=== PATIENT | female | born 1940 | race Caucasian/White ===

== ENCOUNTER → 2017-05-13 | Outpatient (CLI) | payer OTHER ==
[~2017-05-13] MED LIST: ALPR-411 PO; ASPI-461 PO; ATOR10TA88 PO; BISM262C6 PO; CLR10 PO; LOSA1TAB PO; METO50TA7 PO; PRED20TA2 PO; SULF1TAB92 PO; SYMIN/8045 INH; VNTHFA/IN INH
[2017-05-13 10:07] LABS: BLOOD UREA NITROGEN 12 mg/dl (7-18); GLUCOSE 91 mg/dl (70-99)
[2017-05-13 10:08] LABS: BUN/CREATININE RATIO 16.5 (10-20); CALCIUM 9.3 mg/dl (8.5-10.1); CARBON DIOXIDE 29 mmol/L (21-32); CHLORIDE 99 mmol/L (98-107); SODIUM 133 mmol/L (136-145)
[2017-05-13 10:18] LABS: PHOSPHORUS 3.6 mg/dl (2.5-4.9)
[2017-05-13 12:59] LABS: LYME DISEASE AB IGG NEG (NEG)
[2017-05-13 13:02] LABS: LYME DISEASE AB IGM NEG (NEG)
== END | disposition home or self-care (01) ==
LOC: C.LAB1850 07:13
PROVIDERS: ATTEND Internal Medicine Nephrology
DX: R53.83 Other fatigue (principal)

== ENCOUNTER 2017-06-23 17:29 | Emergency (ER) | payer OTHER ==
[~2017-06-23] VITALS: Ht 162.6 cm; Wt 64.6 kg
[~2017-06-23 17:29] MED LIST changes: -PRED20TA2 PO
[2017-06-23 17:31] VITALS: TEMP 36.7; Ht 162.6 cm; Wt 64.6 kg
[2017-06-23] MEDS ORDERED: PRED20TA2 PO (18:32)
[2017-06-23 18:42] VITALS: BP 189/100; PULSE 67; O2SAT 96
--- NOTE | 2017-06-23 23:45 | EMERGENCY ROOM VISIT NOTE ---
ED Visit Note First contact with patient: 17:36 Chief Complaint: I was stung 5 times by insects. History of Present Illness: Ms. Mariano is a 76-year-old white female who ambulates into the ED expressing concerns about a possible reaction. Patient reports 5 years ago she was seen in this ED after she was stung by 5 yellow jackets and developed numbness in swelling in the mouth and throat. She was treated and released with an EpiPen. She reports she has had no problems since then. Patient reports approximately 20 minutes ago she was stung 5 times by an insect that she has never seen before; she did not feel this was a yellow jacket or bee. She reports she is not having any sensations like she had previous reactions with swelling of her lips, mouth or tongue. Currently she is complaining of a stinging pain in the area of her insect bites which includes the right lateral neck, the right flank, left chest and left anterior neck. She rates her discomfort 7/10. Her pain is nonradiating. Her pain worsens with palpation. She has not identified any alleviating factors related to the pain. She has not taken a medications for pain prior to arrival at the hospital. She denies any associated symptoms including dizziness, lightheadedness, sensations of throat swelling, voice changes, difficulty swallowing, cough, wheezing, shortness of breath, abdominal pain, nausea/ vomiting. Review of Systems: As noted above in history of present illness. 8 body systems were reviewed and found to be negative as noted above. Past Medical History: (1) Hyperlipidemia (2) Hypertension Current Medications: Medications Dose Route/Sig Max Daily Dose Days Date Category Dose Instructions Xanax (Alprazolam) 0.5 Mg Tab 0.25 Mg PO PRN 08/27/16 Reported Claritin (Loratadine) 10 Mg Tab 10 Mg PO DAILY PRN 08/27/16 Reported Ventolin Hfa (Albuterol) 200 Puffs/29959 Mcg Aers 2 Puffs INH QID 08/27/16 Reported Symbicort 80/4.5 Inhaler (Budesonide/Formoterol Fumarate) Aero 2 Puffs INH BID 07/17/16 Reported Aspirin 81 Mg Tab 81 Mg PO 3XWK 03/16/16 Reported Lipitor (Atorvastatin Calcium) 10 Mg Tab 10 Mg PO MWF 03/16/16 Reported Cozaar (Losartan Potassium) 25 Mg Tab 25 Mg PO MWF 03/16/16 Reported HOLD AM SURGERY Fridays-AM Toprol-Xl (Metoprolol Succinate) 50 Mg Tabcr 50 Mg PO DAILY AT NOON 03/16/16 Reported Allergies to Medications: Aspirin, doxycycline, warfarin. Social History: Patient not employed; she feels safe in her home environment; he denies tobacco use. Physical Examination: Vital Signs: Date Time Temp Pulse Resp B/P (MAP) Pulse Ox O2 Delivery O2 Flow Rate FiO2 06/23/17 18:42 67 18 189/100 96 06/23/17 17:31 36.7 70 18 188/106 97 GENERAL: 76-year-old female in mild distress due to pain, nontoxic-appearing, afebrile and hemodynamically stable. NEUROLOGICAL: Awake, alert and oriented to person, place and time. Answering questions appropriately and following commands. Normal gait. Good hand eye coordination. No focal motor sensory deficits. SKIN: Warm, dry and pink. Over the 4 areas noted above patient has a small subcentimeter welt surrounded by mild erythema consistent with an insect bite. There are no local hives or erythema. HEENT: Atraumatic and normocephalic. PERRLA. Sclera white and conjunctiva pink. No drainage from naris. Oral cavity moist and pink. Airway is patent. No swelling of the tongue. Pharynx is nonerythematous or edematous. Speech normal. No auditory or auscultatory stridor. THORAX: Lungs sounds are clear to auscultation and equal bilaterally with symmetrical chest wall. No wheezing, rales or rhonchi. No increased respiratory effort or rate. ED Course: Patient is assessed as noted above. Patient's medication list was reviewed. Patient was placed on the monitor and observed; after one hour patient requested to go home and reported she was feeling much better. Patient's case was reviewed with ; we agreed on diagnostic approach , treatment, disposition and plan. Patient was educated about today's findings and instructed on her treatment plan ; she verbalized understanding and agreement with this plan. Clinical Impression: Insect bite. Disposition: Patient discharged home in stable condition accompanied by female friends; prior to departure she was reassessed and subjectively reported she was feeling better. She denies all sensations of throat swelling, shortness of breath. Plan: Patient was encouraged to continue her current medications. Patient was prescribed 40 mg of prednisone once a day for 4 days. Patient was encouraged use 25-50 mg of Benadryl every 6 hours as needed for hives or itchy skin. Patient was encouraged to follow-up with family physician. Patient was encouraged return ED for any sensations of throat swelling, mouth numbness, difficulty swallowing, wheezing, shortness of breath or any new/ concerning symptoms.
== END 2017-06-23 18:43 | disposition home or self-care (01) ==
LOC: C.EDB 17:30 → C.EDD 18:43
DX: T14.8 Other injury of unspecified body region (principal); W57.XXXA Bitten or stung by nonvenomous insect and other nonvenomous arthropods, initial encounter

== ENCOUNTER → 2017-07-11 | Outpatient (CLI) | payer OTHER ==
[~2017-07-11] MED LIST changes: -BISM262C6 PO; +OPTIRAY 320 IV PRN; -SULF1TAB92 PO
--- NOTE | 2017-07-11 08:50 | DIAGNOSTIC IMAGING REPORT ---
CT SCAN OF THE NECK WITH IV CONTRAST CLINICAL HISTORY: Right-sided neck mass. COMPARISON STUDY: No priors. TECHNIQUE: Following the IV administration of 120 cc of Optiray 320, CT scan of the soft tissues of the neck was performed from the skull base to the upper chest. Images are reviewed in the axial, sagittal, and coronal planes. IV contrast was administered without complication. A dose lowering technique was utilized adhering to the principles of ALARA. CT DOSE: 385.62 mGycm FINDINGS: Pharynx: The nasopharynx, oropharynx, and laryngeal pharynx are normal in appearance. The pharyngeal airway is widely patent. There is no evidence of mass lesion. The vocal cords are symmetric. The parapharyngeal fat is well maintained. The prevertebral/retropharyngeal soft tissues are within normal limits. Soft tissues: There is a multilobulated homogeneously fat attenuation lesion identified within/inferior to the right parotid gland. This is located at the deep to the patient's marker, and extends into the right parapharyngeal region. There is no significant mass effect, and this lesion measures approximately 5.5 x 2 x 5 cm. Lymphadenopathy: No cervical lymphadenopathy is seen Thyroid: Normal in size and attenuation. Subcentimeter low-attenuation nodules are noted bilaterally. Salivary glands: The parotid and submandibular glands are within normal limits. Brain parenchyma: The visualized brain parenchyma at the skull base is normal in appearance. Vascular structures: The carotid arteries and jugular veins are widely patent. Atherosclerotic plaque and irregularity is noted in the right carotid bulb. Skeletal structures: The skeletal structures are osteopenic. Imaged portions of the calvarium at the skull base are within normal limits. The cervical spine appears intact noting multilevel spondylosis. Sinuses and mastoids: The visualized paranasal sinuses are clear. The mastoid air cells are well pneumatized. Orbits: The bony orbits are intact. Orbital contents are normal in appearance noting bilateral ocular lens implants. Lung apices: Visualized apical lung parenchyma is clear. IMPRESSION: 1. Deep to the patient's marker there is a large lobulated homogeneous fat attenuation lesion seen within/inferior to the right parotid gland and extending into the right parapharyngeal region. 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 There is no significant associated mass effect. 2. No additional mass or fluid collection is identified. There is no cervical lymphadenopathy. 3. Additional findings as above. Electronically signed by: Ranjan Bowen M.D. 07/11/2017 8:48 AM Dictated Date/Time: 07/11/2017 8:41 AM
== END | disposition home or self-care (01) ==
LOC: C.CTS 07:59
DX: R22.1 Localized swelling, mass and lump, neck (principal)

== ENCOUNTER → 2017-09-16 | Outpatient (CLI) | payer OTHER ==
[~2017-09-16] MED LIST changes: +ATOR10TA82 PO; -ATOR10TA88 PO; -OPTIRAY 320 IV PRN
[2017-09-16 15:22] LABS: BLOOD UREA NITROGEN 11 mg/dl (7-18); BUN/CREATININE RATIO 17.5 (10-20); CARBON DIOXIDE 27 mmol/L (21-32); CHLORIDE 97 mmol/L (98-107); CREATININE 0.64 mg/dl (0.60-1.20); GLUCOSE 90 mg/dl (70-99); MAGNESIUM 2.3 mg/dl (1.8-2.4); PHOSPHORUS 3.7 mg/dl (2.5-4.9); POTASSIUM 4.4 mmol/L (3.5-5.1); SODIUM 131 mmol/L (136-145)
[2017-09-16 16:44] LABS: URINE APPEARANCE CLEAR (CLEAR); URINE BILIRUBIN NEG (NEG); URINE COLOR YELLOW; URINE NITRITE NEG (NEG); URINE PH 7.5 (4.5-7.5); URINE SPECIFIC GRAVITY 1.016 (1.000-1.030); UROBILINOGEN NEG (NEG); ZZUR CULT IF INDIC CLEAN CATCH NO
[2017-09-16 16:45] LABS: MANUAL MICROSCOPIC REQUIRED? NO; REVIEW REQ? NO
== END | disposition home or self-care (01) ==
LOC: C.LAB1850 11:51
PROVIDERS: ATTEND Internal Medicine Nephrology
DX: E87.1 Hypo-osmolality and hyponatremia (principal); R31.29 Other microscopic hematuria

== ENCOUNTER → 2018-03-17 | Outpatient (CLI) | payer OTHER ==
[~2018-03-17] MED LIST changes: -METO50TA7 PO; +METO50TA8 PO
[2018-03-17 10:35] LABS: ALBUMIN 3.6 gm/dl (3.4-5.0); BLOOD UREA NITROGEN 12 mg/dl (7-18); CALCIUM 8.8 mg/dl (8.5-10.1); CARBON DIOXIDE 27 mmol/L (21-32); CREATININE 0.73 mg/dl (0.60-1.20); GLUCOSE 74 mg/dl (70-99); PHOSPHORUS 3.5 mg/dl (2.5-4.9); POTASSIUM 3.8 mmol/L (3.5-5.1); SODIUM 131 mmol/L (136-145)
== END | disposition home or self-care (01) ==
LOC: C.LAB1850 09:37
PROVIDERS: ATTEND Internal Medicine Nephrology
DX: E87.1 Hypo-osmolality and hyponatremia (principal)

== ENCOUNTER 2019-09-07 12:05 | Inpatient (IN) ==
[2019-09-07 13:21] LABS: Basophils # (auto) 0.03 K/uL (0-0.2); Basophils % (auto) 0.8 %; Eosinophils # (auto) 0.06 K/uL (0-0.5); Eosinophils % (auto) 1.5 %; Hematocrit (blood only) 39.7 % (37-47); Hemoglobin 13.8 g/dL (12.0-16.0); Lymphocytes # (auto) 1.38 K/uL (1.2-3.4); Lymphocytes % (auto) 34.9 %; Mean Corpuscular Hemoglobin 30.4 pg (25-34); Mean Corpuscular Hgb Conc 34.8 g/dL (32-36); Mean Corpuscular Volume 87.4 fL (80-100); Mean Platelet Volume 9.8 fL (7.4-10.4); Monocytes # (auto) 0.53 K/uL (0.11-0.59); Monocytes % (auto) 13.4 %; Neutrophils # (auto) 1.95 K/uL (1.4-6.5); Neutrophils % (auto) 49.4 %; Platelet Count 250 K/uL (130-400); RDW Coefficient of Variation 12.7 % (11.5-14.5); Red Blood Count 4.54 M/uL (4.2-5.4); White Blood Count 3.95 K/uL (4.8-10.8)
[2019-09-07] MEDS ORDERED: ONDANSETRON INJ 2 MG/ML 2 ML VIAL IV STA (13:31)
[2019-09-07 13:37] LABS: Alanine Aminotransferase 22 U/L (12-78); Albumin Level 3.5 gm/dl (3.4-5.0); Aspartate Aminotransferase 20 U/L (15-37); BUN Creatinine Ratio 14.2 (10-20); Blood Urea Nitrogen 10 mg/dl (7-18); Calcium 8.9 mg/dl (8.5-10.1); Carbon Dioxide 23 mmol/L (21-32); Chloride 90 mmol/L (98-107); Creatinine Clr Calc Pharmacy 63.7 ml/min; Est GFR (African American) 96.2; Glucose 125 mg/dl (70-99); Potassium 4.2 mmol/L (3.5-5.1); Sodium 121 mmol/L (136-145)
[2019-09-07 13:39] LABS: Alkaline Phosphatase 91 U/L (45-117); Bilirubin,Total 0.5 mg/dl (0.2-1); Globulin 3.6 gm/dl (2.5-4.0); Total Protein 7.1 gm/dl (6.4-8.2)
[2019-09-07] MEDS ORDERED: SODIUM CHLORIDE 0.9% 1000ML 1,000 ML IV SCH (13:45)
--- NOTE | 2019-09-07 13:52 | XRay Report ---
XR chest 1V portable CLINICAL HISTORY: Dizziness COMPARISON STUDY: 04/01/2016 FINDINGS: The cardiac and mediastinal contours are normal. There is no evidence of focal pulmonary co nsolidation. There is no evidence of failure. No pleural effusions are visualized.[ IMPRESSION: No active disease in the chest. Electronically signed by: Paolo Simon M.D. 09/07/2019 1:51 PM
[2019-09-07 13:55] LABS: Troponin I < 0.015 ng/ml (0-0.045)
[2019-09-07 14:07] LABS: Prothrombin Time 10.4 Seconds (9.0-12.0)
--- NOTE | 2019-09-07 14:09 | CT Scan Report ---
CT head/brain wo con CLINICAL HISTORY: 79 years-old Female presenting with dizzy. TECHNIQUE: Multidetector CT imaging of the head was performed without the use of intravenous contrast . IV contrast: None. One or more dose lowering techniques were used consistent with the principles of ALARA (as low as reasonably achievable), including automatic exposure control, mA or kV adjustment t o individual patient size, and/or use of iterative reconstruction. COMPARISON: 07/17/2016. CT DOSE (mGy.cm): The estimated cumulative dose is 537.48 mGy.cm. FINDINGS: Quilting Supervisor topogram: Unremarkable. Proportional ventricular and sulcal prominence, likely age-related parenchymal volume loss. No hemorr wicho. Brain parenchyma normal in appearance with preserved mcelroy-white differentiation. No acute larisa torial infarct. No mass effect or midline shift. No extra-axial fluid collection. Paranasal sinuses a nd mastoid air cells clear. Calvarium intact. IMPRESSION: 1. No acute intracranial abnormality. Electronically signed by: Arden Montenegro M.D. 09/07/2019 2:08 PM
[2019-09-07 15:05] LABS: Appearance Urine Clear (Clear); Bacteria Urine Automated Negative (Negative); Bilirubin Urine Negative (Negative); Blood Urine Negative (Negative); Cast Urine Automated 0 /lpf (0-5); Color Urine Yellow; Epithelial Cell Urine Auto 0-5 /lpf (0-5); Glucose Urine UA Negative (Negative); Ketones Urine Negative (Negative); Leukocyte Esterase Urine Trace (Negative); Nitrite Urine Negative (Negative); Protein Urine Negative (Negative); RBC Urine Automated 0-4 /hpf (0-4); Specific Gravity Urine 1.007 (1.000-1.030); Urobilinogen Urine Negative (Negative); pH Urine 7.5 (4.5-7.5)
--- NOTE | 2019-09-07 16:02 | History & Physical Report ---
Date of Service September 07, 2019 Assessment & Plan (1) Weakness: (2) Hyponatremia: Pt is 79 y/o F with PMH HTN, HLD, chronic hyponatremia (baseline 130-132), asthma, GERD, h/o hyperkalemia on ARB presented to with c/o generalized weakness, fatigue x 3 days. It is reported that pt had progressive cognitive decline over past couple of years with increase in past 6 months and daughter feels pt is currently at her baseline mental status. Acute on Chronic hyponatremia. Weakness may be secondary to hyponatremia In ER pt afebrile, P: 61, R: 20, BP: 157/89, 97% on RA. WBC: 3.9, Na: 121 (Baseline Na: 130-132), Cl: 90 -In ER given 1L NSS, Zofran 4mg -Serum osmolality, urine osmolality, sodium urine, TSH pending -Repeat BMP in 6 hours to monitor Na -Continue fluid restrictions to 1500ml -Closely monitor sodium -Nephrology consult (3) Hypertension: BP elevated in ER -Recent metoprolol decrease from 50mg to 25mg daily by Dr Rico for symptoms of fatigue and weakness -Pt with hx hyperkalemia from ARB in past -Continue metoprolol -Add amlodipine daily -Monitor BP (4) Hypercholesterolemia: -Continue home atorvastatin (5) Asthma: Recent med changes from pulmonology to hold Symbicort and start Pulmicort, however pt has not started this change yet secondary to not receiving nebulizer -Continue Symbicort for now -Albuterol prn DVT Prophylaxis -Lovenox SQ Full Code as per discussion with pt Follows with Dr Prado for routine care Pt was seen and care coordinated with Dr Mendez. See addendum History of Present Illness Chief Complaint: Weakness Primary Care Provider: Alfonso Prado MD Pt is 79 y/o F with PMH HTN, HLD, chronic hyponatremia (baseline 130-132), asthma, GERD, h/o hyperkalemia on ARB presented to ER with c/o weakness. Pt's daughter assists with history. Reports pt has had progressive cognitive decline over past couple of years with increase in past 6 months. She feels pt is currently at her baseline mental status today. Pt states past 3 days feeling overall "unwell". Describes general weakness and fatigue past 3 days. States today was a little dizzy. Denies NEUMANN. Pt states took BP at home and was 170s/115 today. Daughter reports pt with intermittent weakness and fatigue over past several months. Dr Flaherty - cardiology has cut back her metoprolol from 50mg to 25mg daily to see if that would help with her symptoms. Pt and daughter do not feel any significant change in symptoms with med change. Pt reports has been taking her BP's at home and reports have been running 160's/100's. Pt states she sometimes is not compliant with her medications, but thinks she takes her metoprolol regularly. She did take total of 50mg metoprolol today secondary to her elevated BP reading. Pt follows with Dr Bradshaw- Nephrology. She is to be on 50 ounce fluid restriction and >2500mg sodium intake and >60gram protein intake daily. Pt reports has not been following those recommendations. She states that she feels she has not been eating well. Her daughter reports that she typically eats one meal a day with her and always eats well at that time. Pt lives alone, and daughter lives near by and checks on her. States today had some dysuria. Denies hematuria, urinary frequency, urinary retention. Denies fever/chills, diaphoresis, N/V/D/C, syncope, vision changes, neck pain, CP, SOB, orthopnea, palpitations, cough, sore throat, choking, otalgia, rhinorrhea, abdominal pain, paresthesias, extremity edema, rashes. Allergies Allergy/AdvReac Type Severity Reaction Status Date / Time doxycycline Allergy Unknown NAUSEA AND Verified 09/07/19 14:31 VOMITING hornet venom Allergy Unknown ANAPHYLAXIS Verified 09/07/19 14:31 warfarin Allergy Unknown LIPS Verified 09/07/19 14:31 SWELLING/NUMBNESS Home Medications Home Medications Medication Instructions Recorded Confirmed Type atorvastatin 10 mg tablet 10 mg PO UD tab 06/25/19 09/07/19 History [id number]-[id number] 1 tab PO QAM 06/25/19 09/07/19 History budesonide-formoterol HFA 80 2 puffs INHALATION BID #1 gm 07/17/19 09/07/19 History mcg-4.5 mcg/actuation aerosol inhaler metoprolol succinate ER 50 mg 25 mg PO QAM tab 07/17/19 09/07/19 History tablet,extended release 24 hr albuterol sulfate [Ventolin HFA] 2 puff INHALATION UD 09/07/19 09/07/19 History aspirin 81 mg PO UD 09/07/19 09/07/19 History Past Med/Surg History Medical History PFO (patent foramen ovale) (Chronic) History of hysterectomy (Chronic) GERD (gastroesophageal reflux disease) (Chronic) Anxiety (Chronic) Arthritis (Chronic) Asthma (Chronic) Chronic hyponatremia (Chronic) Hypercholesterolemia (Chronic) Hypertension (Chronic) Family History Brother Skin cancer Heart disease Sister Heart disease Social History Current Living Situation: Family current occupational status: retired Feels Safe at Home: Yes Smoking Status: Former smoker Hx Alcohol Use: No Hx Substance Use: No Review of Systems Review of Systems: All systems reviewed & are unremarkable except as noted in HPI & below Physical Exam Physical Exam: General: no distress, WDWN Head: normocephalic, atraumatic Eyes: PERRL, EOM's intact, conjunctiva non-injected, anicteric ENT: normal inspection external ears, nose, mucous membranes moist Neck: supple, trachea midline Lungs: clear, no respiratory distress, no wheezing/rhonchi/rales CV: RRR, no murmur, no JVD, no pretibial edema Abd: normal BS, soft, non-tender Ext: no cyanosis, no calf tenderness Neuro: Alert, oriented to person, place, date, forgetful about medications and medical history, no focal deficits noted, somewhat flat affect Skin: warm, dry Results & Data Vital Signs (Past 12 Hours) Vital Signs Temp Pulse Resp BP Pulse Ox 09/07/19 14:30 61 19 09/07/19 14:07 57 L 21 09/07/19 13:54 61 20 179/97 H 97 09/07/19 13:53 62 18 184/94 H 96 09/07/19 13:52 66 16 183/98 H 95 09/07/19 13:34 56 L 24 09/07/19 13:33 98 09/07/19 13:30 55 L 21 181/96 H 09/07/19 12:09 36.6 C 61 20 157/89 H 97 Laboratory Results Short CBC 09/07/19 Range/Units 13:13 WBC 3.95 L (4.8-10.8) K/uL Hgb 13.8 (12.0-16.0) g/dL Hct 39.7 (37-47) % Plt Count 250 (130-400) K/uL BMP 09/07/19 13:13 Sodium 121 L Potassium 4.2 Chloride 90 L Carbon Dioxide 23 BUN 10 Creatinine 0.67 Glucose 125 H Calcium 8.9 Cardiac Enzymes 09/07/19 Range/Units 13:13 Troponin I < 0.015 (0-0.045) ng/ml Liver Function 09/07/19 Range/Units 13:13 Total Bilirubin 0.5 (0.2-1) mg/dl AST 20 (15-37) U/L ALT 22 (12-78) U/L Alkaline Phosphatase 91 (45-117) U/L Albumin 3.5 (3.4-5.0) gm/dl Urine 09/07/19 Range/Units 14:52 Urine Color Yellow Urine Appearance Clear (Clear) Urine pH 7.5 (4.5-7.5) Ur Specific Snyder 1.007 (1.000-1.030) Urine Protein Negative (Negative) Urine Glucose (UA) Negative (Negative) Diagnostic Findings CT HEAD IMPRESSION: 1. No acute intracranial abnormality. CXR: IMPRESSION: No active disease in the chest. ECG Rate (beats per minute): 57 Rhythm: sinus bradycardia Code Status & VTE Plan VTE Prophylaxis Plan VTE Prophylaxis will be ordered: Yes Supervising Physician Co-Signing Physician Notes I, Dr. Sharif Mendez, have seen and examined the patient with physician community program assistant and would like to comment that This is an 79 year old female with recurrent hyponatremia and came to the hospital because of symptoms of WEAKNESS. Serum sodium is 121 and has HYPOTONIC HYPONATREMIA. She does not appear to be fluid overloaded. She denies vomiting or diarrhea. Will follow previous July 2019 nephrology strategies for fluid restriction and trend the serum sodium labs. Will request nephrology consult. HYPERTENSION noted and does not appear to be controlled by home dose metoprolol. will start amlodipine 5 mg daily and target blood pressure of systolic of 160. will place PT/OT evaluations to assess weakness and mobility. agree with other assessment and plans of other health issues as documented by physician community program assistant Physical Exam General: no acute distress, patient appears to be comfortable Neuro: patient appears to be able to answer questions appropriately Neck: normal visual inspection Eyes: ocular movements intact, pupils are equal and reactive to light Lungs: clear to auscultation bilaterally, no wheezing, no stridor Heart: bradycardia Abdomen: soft, nontender, positive bowel sounds Extremities: no edema My colleague Dr. Blanton will be following the patient starting on 09/08/19 as hospitalist
[2019-09-07 16:09] LABS: Urine Potassium 5.4 mmol/L
--- NOTE | 2019-09-07 17:02 | Emergency Department Note ---
Entered by Kamari Thomas acting as a scribe for History of Present Illness General Chief complaint: Hypertension Stated complaint: DIZZY, WEAK, HIGH BLOOD PRESSURE Source: patient and family History of Present Illness Onset (ago): hour(s) (upon waking up this morning ) Location: head Severity: similar to prior episodes Pain Consistency: + constant Quality: + other (weakness and lightheadedness ) Associated symptoms: + cough and + other (+burning with urination; -rhinorrhea; -abdominal pain); no chest pain and no nausea/vomiting The patient is an 79 year old male, with past medical history of hypertension, mild cognitive impairment, and hyponatremia, who presents to the Emergency Room with complaints of constant weakness and lightheadedness that began upon waking up this morning 6 hours ago. The patient does not know if her lightheadedness changes with changing of positions. The patient also reports of a burning sensation with urination that the patient first experienced in the ED. The patient denies a cough, rhinorrhea, chest pain, abdominal pain, recent fall, or nausea/vomiting. The family of the patient notes the patients typical sodium levels are at 131, but they note it can drop to 126. The family notes the patient has had multiple episodes like this before, but they state this is the worst episode of weakness, lightheaded, and fatigue. They state prior episodes have resolved on their own in a few days. The family notes the patient's blood pressure has been high recently. Home Medications Home Medications Medication Instructions Recorded Confirmed Type atorvastatin 10 mg tablet 10 mg PO UD tab 06/25/19 09/07/19 History yqycqbekuebj-paeoacxp-lwkvit 1 tab PO QAM 06/25/19 09/07/19 History budesonide-formoterol HFA 80 2 puffs INHALATION BID #1 gm 07/17/19 09/07/19 History mcg-4.5 mcg/actuation aerosol inhaler metoprolol succinate ER 50 mg 25 mg PO QAM tab 07/17/19 09/07/19 History tablet,extended release 24 hr albuterol sulfate [Ventolin HFA] 2 puff INHALATION UD 09/07/19 09/07/19 History aspirin 81 mg PO UD 09/07/19 09/07/19 History Allergies Allergy/AdvReac Type Severity Reaction Status Date / Time doxycycline Allergy Unknown NAUSEA AND Verified 09/07/19 14:31 VOMITING hornet venom Allergy Unknown ANAPHYLAXIS Verified 09/07/19 14:31 warfarin Allergy Unknown LIPS Verified 09/07/19 14:31 SWELLING/NUMBNESS Past Med/Surg History Medical History PFO (patent foramen ovale) (Chronic) History of hysterectomy (Chronic) GERD (gastroesophageal reflux disease) (Chronic) Anxiety (Chronic) Arthritis (Chronic) Asthma (Chronic) Chronic hyponatremia (Chronic) Hypercholesterolemia (Chronic) Hypertension (Chronic) Family History Brother Skin cancer Heart disease Sister Heart disease Social History Current Living Situation: Family current occupational status: retired Feels Safe at Home: Yes Smoking Status: Former smoker Hx Alcohol Use: No Hx Substance Use: No Review of Systems See HPI for pertinent positives & negatives. and A total of 10 systems reviewed and were otherwise negative Physical Exam Vital Signs Vital Signs - 24 hr 09/07/19 12:09 09/07/19 13:30 09/07/19 13:33 Temperature 36.6 C Temperature Source Oral Sepsis Recent Fever Within 48 Hours No Sepsis Action Taken by Nursing No Action Required Pulse Rate - Lying Pulse Rate - Sitting Pulse Rate - Standing Pulse Rate 61 55 L Pulse Rate from SpO2 Sensor Respiratory Rate 20 21 Respiratory Effort / Characteristics Non-Labored Spontaneous Respiratory Depth Normal Blood Pressure - Lying Blood Pressure - Sitting Blood Pressure- Standing Blood Pressure 157/89 H 181/96 H Blood Pressure Mean 111 124 Blood Pressure Position Sitting Pulse Oximetry 97 98 Oxygen Delivery Method Room Air Room Air 09/07/19 13:34 09/07/19 13:52 09/07/19 13:53 Temperature Temperature Source Sepsis Recent Fever Within 48 Hours Sepsis Action Taken by Nursing Pulse Rate - Lying Pulse Rate - Sitting Pulse Rate - Standing Pulse Rate 56 L 66 62 Pulse Rate from SpO2 Sensor 64 62 Respiratory Rate 24 16 18 Respiratory Effort / Characteristics Respiratory Depth Blood Pressure - Lying Blood Pressure - Sitting Blood Pressure- Standing Blood Pressure 183/98 H 184/94 H Blood Pressure Mean 126 124 Blood Pressure Position Pulse Oximetry 95 96 Oxygen Delivery Method Room Air Room Air 09/07/19 13:54 09/07/19 13:56 09/07/19 14:07 Temperature Temperature Source Sepsis Recent Fever Within 48 Hours Sepsis Action Taken by Nursing Pulse Rate - Lying 58 L Pulse Rate - Sitting 64 Pulse Rate - Standing 62 Pulse Rate 61 57 L Pulse Rate from SpO2 Sensor Respiratory Rate 20 21 Respiratory Effort / Characteristics Respiratory Depth Blood Pressure - Lying 183/98 H Blood Pressure - Sitting 184/94 H Blood Pressure- Standing 179/97 H Blood Pressure 179/97 H Blood Pressure Mean 124 Blood Pressure Position Pulse Oximetry 97 Oxygen Delivery Method Room Air 09/07/19 14:30 09/07/19 14:57 09/07/19 15:00 Temperature Temperature Source Sepsis Recent Fever Within 48 Hours Sepsis Action Taken by Nursing Pulse Rate - Lying Pulse Rate - Sitting Pulse Rate - Standing Pulse Rate 61 60 61 Pulse Rate from SpO2 Sensor 60 60 Respiratory Rate 19 20 20 Respiratory Effort / Characteristics Respiratory Depth Blood Pressure - Lying Blood Pressure - Sitting Blood Pressure- Standing Blood Pressure 171/94 H 193/95 H Blood Pressure Mean 119 127 Blood Pressure Position Pulse Oximetry 95 95 Oxygen Delivery Method Room Air Room Air 09/07/19 15:01 09/07/19 15:30 09/07/19 15:31 Temperature Temperature Source Sepsis Recent Fever Within 48 Hours Sepsis Action Taken by Nursing Pulse Rate - Lying Pulse Rate - Sitting Pulse Rate - Standing Pulse Rate 60 60 60 Pulse Rate from SpO2 Sensor 61 Respiratory Rate 20 20 19 Respiratory Effort / Characteristics Respiratory Depth Blood Pressure - Lying Blood Pressure - Sitting Blood Pressure- Standing Blood Pressure 169/94 H Blood Pressure Mean 119 Blood Pressure Position Pulse Oximetry 96 Oxygen Delivery Method Room Air 09/07/19 16:00 09/07/19 16:01 Temperature Temperature Source Sepsis Recent Fever Within 48 Hours Sepsis Action Taken by Nursing Pulse Rate - Lying Pulse Rate - Sitting Pulse Rate - Standing Pulse Rate 59 L 59 L Pulse Rate from SpO2 Sensor 59 L 59 L Respiratory Rate 20 21 Respiratory Effort / Characteristics Respiratory Depth Blood Pressure - Lying Blood Pressure - Sitting Blood Pressure- Standing Blood Pressure 177/96 H Blood Pressure Mean 123 Blood Pressure Position Pulse Oximetry 96 95 Oxygen Delivery Method Room Air Room Air GENERAL: disheveled, sitting up in bed, wearing hospital gown, in no acute distress EYE EXAM: normal conjunctiva, PERRL and EOM's intact OROPHARYNX: no exudate, no erythema, lips, buccal mucosa, and tongue normal and mucous membranes are moist NECK: supple, no nuchal rigidity, no adenopathy, non-tender LUNGS: Clear to auscultation. Normal chest wall mechanics HEART: no murmurs, S1 normal and S2 normal ABDOMEN: abdomen soft, non-tender, normo-active bowel sounds, no masses, no rebound or guarding. BACK: Back is symmetrical on inspection and there is no deformity, no midline tenderness, no CVA tenderness. SKIN: no rashes and no bruising UPPER EXTREMITIES: upper extremities are grossly normal. LOWER EXTREMITIES: No pitting edema. NEURO EXAM: Normal sensorium, cranial nerves II-XII intact, normal speech, no weakness of arms, no weakness of legs. No drift. Finger to nose intact. Gross sensation intact. Rapid alternating movements of upper extremities intact. Heel to philippe intact. Course ED COURSE: Vital signs were reviewed and showed hypertensive. The patients medical record was reviewed The above diagnostic studies were performed and reviewed. ED treatments and interventions as stated above. 1314: The patient was evaluated in room C5. A complete history and physical examination was performed. 1600: I reviewed the patient's case with Piedad Mora. Dr. Cody Mora will evaluate the patient for further management. Based on the patients age, coexisting illnesses, exam and lab findings the decision to treat as an inpatient was made. The patient remained stable while under my care. The patient will be evaluated for further management. Consultations Consultation #1: I reviewed the patient's case with Piedad Mora. Dr. Cody Mora will evaluate the patient for further management. Time: 16:00 Administered Medications Discontinued Medications Sodium Chloride (Nss 1000ml) 1,000 mls @ 999 mls/hr IV .[id number] [facility] Stop: 09/07/19 14:45 Last Infusion: 09/07/19 14:41 Dose: 0 mls/hr Documented by: [id number] Admin: 09/07/19 13:40 Dose: 999 mls/hr Documented by: [id number] Ondansetron HCl (Zofran) 4 mg IV NOW STA Stop: 09/07/19 13:32 Last Admin: 09/07/19 13:40 Dose: 4 mg Documented by: [id number] Medical Decision Making Differential Diagnosis Differential diagnoses includes but is not limited to pneumonia, bronchitis, COPD/Asthma exacerbation, pneumothorax, pulmonary embolism, congestive heart failure, acute coronary syndrome Medical Records Attestation: I reviewed the patient's medical records. Home Medications Current Medication List: was personally reviewed by me Laboratory Data Attestation: I reviewed the patient's lab results. Result diagrams: 09/07/19 13:13 09/07/19 13:13 Lab Results 09/07/19 09/07/19 09/07/19 Range/Units 13:13 13:13 13:13 WBC 3.95 L (4.8-10.8) K/uL RBC 4.54 (4.2-5.4) M/uL Hgb 13.8 (12.0-16.0) g/dL Hct 39.7 (37-47) % MCV 87.4 (80-100) fL MCH 30.4 (25-34) pg MCHC 34.8 (32-36) g/dL RDW Std Deviation 41.0 (36.4-46.3) fL RDW Coeff of Earnest 12.7 (11.5-14.5) % Plt Count 250 (130-400) K/uL MPV 9.8 (7.4-10.4) fL Immature Gran % (Auto) 0.0 % Neut % (Auto) 49.4 % Lymph % (Auto) 34.9 % Price % (Auto) 13.4 % Eos % (Auto) 1.5 % Baso % (Auto) 0.8 % Immature Gran # (Auto) 0.00 (0.00-0.02) K/uL Neut # (Auto) 1.95 (1.4-6.5) K/uL Lymph # (Auto) 1.38 (1.2-3.4) K/uL Price # (Auto) 0.53 (0.11-0.59) K/uL Eos # (Auto) 0.06 (0-0.5) K/uL Baso # (Auto) 0.03 (0-0.2) K/uL PT (9.0-12.0) Seconds INR (0.9-1.1) Sodium 121 L (136-145) mmol/L Potassium 4.2 (3.5-5.1) mmol/L Chloride 90 L (98-107) mmol/L Carbon Dioxide 23 (21-32) mmol/L Anion Gap 8.0 (3-11) BUN 10 (7-18) mg/dl Creatinine 0.67 (0.6-1.2) mg/dl Est Cr Clr Drug Dosing 63.7 ml/min Est GFR ( Amer) 96.2 Est GFR (Non-Af Amer) 83.0 BUN/Creatinine Ratio 14.2 (10-20) Glucose 125 H (70-99) mg/dl Osmolality (280-300) mOsm/kg Calcium 8.9 (8.5-10.1) mg/dl Total Bilirubin 0.5 (0.2-1) mg/dl AST 20 (15-37) U/L ALT 22 (12-78) U/L Alkaline Phosphatase 91 (45-117) U/L Troponin I < 0.015 (0-0.045) ng/ml Total Protein 7.1 (6.4-8.2) gm/dl Albumin 3.5 (3.4-5.0) gm/dl Globulin 3.6 (2.5-4.0) gm/dl Albumin/Globulin Ratio 1.0 (0.9-2) TSH 1.170 (0.300-4.500) uIu/ml Urine Color Urine Appearance (Clear) Urine pH (4.5-7.5) Ur Specific [place] (1.000-1.030) Urine Protein (Negative) Urine Glucose (UA) (Negative) Urine Ketones (Negative) Urine Blood (Negative) Urine Nitrite (Negative) Urine Bilirubin (Negative) Urine Urobilinogen (Negative) Ur Leukocyte Esterase (Negative) Urine WBC (Auto) (0-5) /hpf Urine RBC (Auto) (0-4) /hpf U Hyaline Cast (Auto) (0-5) /lpf U Epithel Cells (Auto) (0-5) /lpf Urine Bacteria (Auto) (Negative) Urine Osmolality (500-800) mOsm/kg Urine Sodium mmol/L Urine Potassium mmol/L Urine Chloride mmol/L 09/07/19 09/07/19 09/07/19 Range/Units 13:48 14:52 14:52 WBC (4.8-10.8) K/uL RBC (4.2-5.4) M/uL Hgb (12.0-16.0) g/dL Hct (37-47) % MCV (80-100) fL MCH (25-34) pg MCHC (32-36) g/dL RDW Std Deviation (36.4-46.3) fL RDW Coeff of Earnest (11.5-14.5) % Plt Count (130-400) K/uL MPV (7.4-10.4) fL Immature Gran % (Auto) % Neut % (Auto) % Lymph % (Auto) % Price % (Auto) % Eos % (Auto) % Baso % (Auto) % Immature Gran # (Auto) (0.00-0.02) K/uL Neut # (Auto) (1.4-6.5) K/uL Lymph # (Auto) (1.2-3.4) K/uL Price # (Auto) (0.11-0.59) K/uL Eos # (Auto) (0-0.5) K/uL Baso # (Auto) (0-0.2) K/uL PT 10.4 (9.0-12.0) Seconds INR 1.0 (0.9-1.1) Sodium (136-145) mmol/L Potassium (3.5-5.1) mmol/L Chloride (98-107) mmol/L Carbon Dioxide (21-32) mmol/L Anion Gap (3-11) BUN (7-18) mg/dl Creatinine (0.6-1.2) mg/dl Est Cr Clr Drug Dosing ml/min Est GFR ( Amer) Est GFR (Non-Af Amer) BUN/Creatinine Ratio (10-20) Glucose (70-99) mg/dl Osmolality (280-300) mOsm/kg Calcium (8.5-10.1) mg/dl Total Bilirubin (0.2-1) mg/dl AST (15-37) U/L ALT (12-78) U/L Alkaline Phosphatase (45-117) U/L Troponin I (0-0.045) ng/ml Total Protein (6.4-8.2) gm/dl Albumin (3.4-5.0) gm/dl Globulin (2.5-4.0) gm/dl Albumin/Globulin Ratio (0.9-2) TSH (0.300-4.500) uIu/ml Urine Color Yellow Urine Appearance Clear (Clear) Urine pH 7.5 (4.5-7.5) Ur Specific [place] 1.007 (1.000-1.030) Urine Protein Negative (Negative) Urine Glucose (UA) Negative (Negative) Urine Ketones Negative (Negative) Urine Blood Negative (Negative) Urine Nitrite Negative (Negative) Urine Bilirubin Negative (Negative) Urine Urobilinogen Negative (Negative) Ur Leukocyte Esterase Trace H (Negative) Urine WBC (Auto) 1-5 (0-5) /hpf Urine RBC (Auto) 0-4 (0-4) /hpf U Hyaline Cast (Auto) 0 (0-5) /lpf U Epithel Cells (Auto) 0-5 (0-5) /lpf Urine Bacteria (Auto) Negative (Negative) Urine Osmolality 139 L (500-800) mOsm/kg Urine Sodium mmol/L Urine Potassium mmol/L Urine Chloride mmol/L 09/07/19 09/07/19 Range/Units 14:52 16:04 WBC (4.8-10.8) K/uL RBC (4.2-5.4) M/uL Hgb (12.0-16.0) g/dL Hct (37-47) % MCV (80-100) fL MCH (25-34) pg MCHC (32-36) g/dL RDW Std Deviation (36.4-46.3) fL RDW Coeff of Earnest (11.5-14.5) % Plt Count (130-400) K/uL MPV (7.4-10.4) fL Immature Gran % (Auto) % Neut % (Auto) % Lymph % (Auto) % Price % (Auto) % Eos % (Auto) % Baso % (Auto) % Immature Gran # (Auto) (0.00-0.02) K/uL Neut # (Auto) (1.4-6.5) K/uL Lymph # (Auto) (1.2-3.4) K/uL Price # (Auto) (0.11-0.59) K/uL Eos # (Auto) (0-0.5) K/uL Baso # (Auto) (0-0.2) K/uL PT (9.0-12.0) Seconds INR (0.9-1.1) Sodium (136-145) mmol/L Potassium (3.5-5.1) mmol/L Chloride (98-107) mmol/L Carbon Dioxide (21-32) mmol/L Anion Gap (3-11) BUN (7-18) mg/dl Creatinine (0.6-1.2) mg/dl Est Cr Clr Drug Dosing ml/min Est GFR ( Amer) Est GFR (Non-Af Amer) BUN/Creatinine Ratio (10-20) Glucose (70-99) mg/dl Osmolality 259 L (280-300) mOsm/kg Calcium (8.5-10.1) mg/dl Total Bilirubin (0.2-1) mg/dl AST (15-37) U/L ALT (12-78) U/L Alkaline Phosphatase (45-117) U/L Troponin I (0-0.045) ng/ml Total Protein (6.4-8.2) gm/dl Albumin (3.4-5.0) gm/dl Globulin (2.5-4.0) gm/dl Albumin/Globulin Ratio (0.9-2) TSH (0.300-4.500) uIu/ml Urine Color Urine Appearance (Clear) Urine pH (4.5-7.5) Ur Specific [place] (1.000-1.030) Urine Protein (Negative) Urine Glucose (UA) (Negative) Urine Ketones (Negative) Urine Blood (Negative) Urine Nitrite (Negative) Urine Bilirubin (Negative) Urine Urobilinogen (Negative) Ur Leukocyte Esterase (Negative) Urine WBC (Auto) (0-5) /hpf Urine RBC (Auto) (0-4) /hpf U Hyaline Cast (Auto) (0-5) /lpf U Epithel Cells (Auto) (0-5) /lpf Urine Bacteria (Auto) (Negative) Urine Osmolality (500-800) mOsm/kg Urine Sodium 56 mmol/L Urine Potassium 5.4 mmol/L Urine Chloride 54 mmol/L Imaging Data Radiologist's Impression: Radiology results as stated below per my review and the radiologist's interpretation: CT head/brain wo con CLINICAL HISTORY: 79 years-old Female presenting with dizzy. TECHNIQUE: Multidetector CT imaging of the head was performed without the use of intravenous contrast. IV contrast: None. One or more dose lowering techniques were used consistent with the principles of ALARA (as low as reasonably achievable), including automatic exposure control, mA or kV adjustment to individual patient size, and/or use of iterative reconstruction. COMPARISON: 07/17/2016. CT DOSE (mGy.cm): The estimated cumulative dose is 537.48 mGy.cm. FINDINGS: As400 Analyst topogram: Unremarkable. Proportional ventricular and sulcal prominence, likely age-related parenchymal volume loss. No hemorrhage. Brain parenchyma normal in appearance with preserved mcelroy-white differentiation. No acute territorial infarct. No mass effect or midline shift. No extra-axial fluid collection. Paranasal sinuses and mastoid air cells clear. Calvarium intact. IMPRESSION: 1. No acute intracranial abnormality. Electronically signed by: Arden Montenegro M.D. 09/07/2019 2:08 PM XR chest 1V portable CLINICAL HISTORY: Dizziness COMPARISON STUDY: 04/01/2016 FINDINGS: The cardiac and mediastinal contours are normal. There is no evidence of focal pulmonary consolidation. There is no evidence of failure. No pleural effusions are visualized.[ IMPRESSION: No active disease in the chest. Electronically signed by: Paolo Simon M.D. 09/07/2019 1:51 PM ECG Data Attestation: I personally reviewed and interpreted this ECG as follows: Indication: + other (hypertension ) Rate (beats per minute): 57 Rhythm: + sinus bradycardia ECG Intervals/blocks: + Normal QT ECG [place]: + Normal ECG ST segments: + T-wave inversions (in lead V1 ) ECG Findings: no PVCs Blood Pressure Blood Pressure Findings: Elevated blood pressure Blood Pressure Disposition: further management by hospitalist REBEKA Jasso Patient is an 79-year-old female who presents the ER for dizziness which started this morning around 7 AM and she feels lightheaded weak. She did have one episode of dysuria. Vitals show that she is slightly hypertensive. Labs show mild leukopenia at 3.9 thousand. No significant anemia. INR was unremarkable. BMP with a sodium of 121 and chloride of 90. This is significantly worse than where she has been previously. LFTs bilirubin troponin and TSH was unremarkable. Serum and urine osmolality were both low. Patient was already given a dose of IV fluids. She was updated bedside. CT head was negative and chest x-ray were unremarkable. Patient was updated and discharged follow-up PCP as an outpatient. Discussed with Pt concerning signs and symptoms to watch out for. Pt was instructed to follow up with their PCP and discussed with the patient their option to return to the ED at anytime for persistent or worsening symptoms. The appropriate anticipatory guidance and out-patient management, including indications for return to the emergency department, were explained at length to the patient and understood. Impression & Plan Hyponatremia, Hypertension, Weakness, Dizziness Discharge Plan Visit Data Chief Complaint: Hypertension Stated Complaint: DIZZY, WEAK, HIGH BLOOD PRESSURE ED Provider: Rod Maldonado Discharge Problem: Hyponatremia, Hypertension, Weakness, Dizziness Patient Disposition: Being Evaluated by Hospitalist Forms Stand Alone Forms: My [facility] Prescriptions Prescriptions: No Action atorvastatin 10 mg tablet 10 mg PO UD RF: 0 [id number]-[id number] 1 tab PO QAM RF: 0 budesonide-formoterol 80-4.5 mcg/actuation HFA aerosol inhaler 2 puffs inhalation BID Qty: 1 RF: 0 metoprolol succinate 50 mg tablet extended release 24 hr 25 mg PO QAM RF: 0 albuterol sulfate [Ventolin HFA] 90 mcg/actuation HFA aerosol inhaler 2 puff inhalation UD RF: 0 aspirin 81 mg Tablet,Delayed Release (Dr/Ec) 81 mg PO UD RF: 0 Referrals Referrals: Alfonso Prado MD [Primary Care Provider] - Discharge Problem: Hypertension Qualifiers: Hypertension type: unspecified Qualified Code(s): I10 - Essential (primary) hypertension The scribe's documentation has been prepared under my direction and personally reviewed by me in its entirety. I confirm that the note above accurately reflects all work, treatment, procedures, and medical decision making performed by me.
[2019-09-07] MEDS ORDERED: ALBUTEROL HFA 8 GM INHALER INH PRN (18:02)
[2019-09-07] MEDS ORDERED: ACETAMINOPHEN 325 MG TAB PO PRN (18:02)
[2019-09-07 19:21] LABS: Hematocrit (blood only) 40.2 % (37-47); Mean Corpuscular Hemoglobin 30.5 pg (25-34); Mean Corpuscular Hgb Conc 34.8 g/dL (32-36); Mean Corpuscular Volume 87.6 fL (80-100); Mean Platelet Volume 9.5 fL (7.4-10.4); Platelet Count 229 K/uL (130-400); RDW Coefficient of Variation 12.8 % (11.5-14.5); RDW Standard Deviation 41.1 fL (36.4-46.3); Red Blood Count 4.59 M/uL (4.2-5.4); White Blood Count 4.54 K/uL (4.8-10.8)
[2019-09-07 19:38] LABS: Calcium 8.6 mg/dl (8.5-10.1); Creatinine Clr Calc Pharmacy 51.1 ml/min; Est GFR (African American) 77.2; Est GFR (Non-African American) 66.6; Potassium 3.8 mmol/L (3.5-5.1)
[2019-09-07] MEDS: AMLODIPINE BESYLATE 5 MG TAB PO SCH (20:29)
[2019-09-07] MEDS: BUDESONIDE/FORMOTEROL FUMARATE 80/4.5 60 PUFFS/INHALER INH SCH (20:30)
[2019-09-07] MEDS: ENOXAPARIN INJ 40 MG/0.4 ML SYR SQ SCH (20:30)
[2019-09-07] MEDS ORDERED: INFLUENZA ADMINISTRATION CHARGE ONE (22:00)
[2019-09-07] MEDS ORDERED: INFLUENZA VACCINE HIGH DOSE 65+ 0.5 ML SYR IM ONE (22:00)
[2019-09-08 01:31] LABS: BUN Creatinine Ratio 18.9 (10-20); Calcium 8.3 mg/dl (8.5-10.1); Creatinine Clr Calc Pharmacy 64.3 ml/min; Est GFR (African American) 96.7; Est GFR (Non-African American) 83.4; Potassium 3.8 mmol/L (3.5-5.1)
[2019-09-08 06:19] LABS: Hematocrit (blood only) 37.8 % (37-47); Hemoglobin 13.1 g/dL (12.0-16.0); Mean Corpuscular Hemoglobin 30.2 pg (25-34); Mean Corpuscular Hgb Conc 34.7 g/dL (32-36); Mean Corpuscular Volume 87.1 fL (80-100); Mean Platelet Volume 9.5 fL (7.4-10.4); Platelet Count 231 K/uL (130-400); RDW Coefficient of Variation 12.7 % (11.5-14.5); RDW Standard Deviation 41.3 fL (36.4-46.3); Red Blood Count 4.34 M/uL (4.2-5.4); White Blood Count 4.43 K/uL (4.8-10.8)
[2019-09-08 06:55] LABS: BUN Creatinine Ratio 18.6 (10-20); Calcium 8.5 mg/dl (8.5-10.1); Creatinine Clr Calc Pharmacy 68.1 ml/min; Est GFR (African American) 98.7; Est GFR (Non-African American) 85.2; Potassium 3.9 mmol/L (3.5-5.1)
[2019-09-08] MEDS: CEROVITE ADV FORMULA TAB PO SCH (08:29)
[2019-09-08] MEDS: AMLODIPINE BESYLATE 5 MG TAB PO SCH (08:29)
[2019-09-08] MEDS: BUDESONIDE/FORMOTEROL FUMARATE 80/4.5 60 PUFFS/INHALER INH SCH ×2 (08:29→20:50)
[2019-09-08] MEDS: METOPROLOL SUCC 25MG EXT REL TAB PO SCH (08:56)
--- NOTE | 2019-09-08 12:38 | Nephrology Consultation ---
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 Serum sodium was initially 121 and urine osmolality to was appropriately low at 138. Sodium improved to 126 this morning. Blood pressure initially was elevated which currently improved. She continues to feel fatigue and tired but otherwise denies any specific symptom. Acute hyponatremia with history of chronic hyponatremia could be secondary to excessive free water intake as urine osmolality seems to be appropriately low --encourage fluid restriction to less than 50 oz a day, liberalize salt in diet --start on oral salt tablet 1 g twice a day --monitor serum sodium q.6 hours --avoid NSAIDs, avoid thiazide diuretics. will follow Thank you for allowing me to participate in your patient's care. It was a pleasure to see Domenica (2) Weakness: (3) Hypertension: History of Present Illness Reason for Consultation: Chronic hyponatremia. Attending Physician: Violeta Blanton DO History of Present Illness Domenica Mariano 79-year-old female with past medical history significant for chronic hyponatremia hypertension asthma, GERD and anxiety disorder admitted to the hospital with acute hyponatremia and change in mental status. Nephrology consult was requested to manage hyponatremia. Electronic medical records incl uding labs and imaging are reviewed in detail during patient's visit. Domenica was brought to the hospital yesterday by her family as she was fell like not to be her baseline and family noticed some change in her overall health status. She denies any specific symptom but feels like she is not herself although denies any confusion headache, visual changes. Workup in ER including head CT, urinalysis was unremarkable. Lab showed serum sodium 121 which slightly improved to 126 this morning. Urine osmolality was low at 138. Clinically she continues to feel about the same. Initially her blood pressure was elevated which improved as amlodipine was added in addition to her home dose of metoprolol. She denied any acute illness recently, no vomiting, diarrhea. She has not been following fluid restriction but does not think she has been drinking a lot. 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 She has been on fluid restriction 50-60 oz a day, advised to liberalize salt in diet and encouraged increased protein intake however she was not sure either she was really following dose instructions although she mentioned that her appetite has been fine. Allergies Allergy/AdvReac Type Severity Reaction Status Date / Time doxycycline Allergy Unknown NAUSEA AND Verified 09/07/19 14:31 VOMITING hornet venom Allergy Unknown ANAPHYLAXIS Verified 09/07/19 14:31 warfarin Allergy Unknown LIPS Verified 09/07/19 14:31 SWELLING/NUMBNESS Home Medications Home Medications Medication Instructions Recorded Confirmed Type atorvastatin 10 mg tablet 10 mg PO UD tab 06/25/19 09/07/19 History fwojkphvzijc-vtpnfnje-gtjdaz 1 tab PO QAM 06/25/19 09/07/19 History budesonide-formoterol HFA 80 2 puffs INHALATION BID #1 gm 07/17/19 09/07/19 History mcg-4.5 mcg/actuation aerosol inhaler metoprolol succinate ER 50 mg 25 mg PO QAM tab 07/17/19 09/07/19 History tablet,extended release 24 hr albuterol sulfate [Ventolin HFA] 2 puff INHALATION UD 09/07/19 09/07/19 History aspirin 81 mg PO UD 09/07/19 09/07/19 History Patient History Medical History PFO (patent foramen ovale) (Chronic) History of hysterectomy (Chronic) GERD (gastroesophageal reflux disease) (Chronic) Anxiety (Chronic) Arthritis (Chronic) Asthma (Chronic) Chronic hyponatremia (Chronic) Hypercholesterolemia (Chronic) Hypertension (Chronic) Family History Brother Skin cancer Heart disease Sister Heart disease Social History Preferred Language: Romansh Communication Ability: Effective Eradicator Required: No Beliefs That Will Affect Care: None marital status: / Current Living Situation: Alone current occupational status: retired Other Information That Helps Us Care for You: No Feels Safe at Home: Yes Safety Concerns: Feels Safe At This Time Smoking Status: Former smoker Tobacco Type: cigarettes ; Do You Dip or Chew Tobacco: No ; Second Hand Exposure: No ; Tobacco Cessation Education Requested by Patient: No Hx Alcohol Use: Yes Alcohol type: wine Hx Substance Use: No Review of Systems Review of Systems: All systems reviewed & are unremarkable except as noted in HPI & below Physical Exam Constitutional: WD/WN, vitals as above well developed and well nourished; no acute distress Eyes: PERRL, conjunctivae normal, anicteric sclerae ENMT: external ear and nose normal, oropharynx normal Ears: no hearing impairment Neck: trachea midline Respiratory: normal respiratory effort, lungs clear to auscultation no cough Auscultation: no crackles, no rales and no wheezes Cardiovascular: RRR, no murmur, no edema Gastrointestinal (Abdomen): normal bowel sounds, soft, nontender, no hepatosplenomegaly Percussion/Palpation: abdomen nontender, no guarding and abdomen not rigid Musculoskeletal: Extremities: extremities normal to inspection Gait: normal gait Skin: no rashes, warm and dry Neurologic: moves all extremities and awake Psychiatric: A+Ox3, euthymic affect Results & Data Vital Signs (Past 12 Hours) Vital Signs Temp Pulse Pulse Resp BP Pulse Ox 09/08/19 07:57 36.9 C 61 18 127/81 95 09/08/19 06:55 61 09/08/19 04:00 37.0 C 66 20 138/84 92 PG Care Time/CCT Total # of Minutes Spent Total Time Spent with Patient: Total time spent is greater than 50% in coordination of care (as documented) at patient's floor/unit and/or counseling patient: (1) Hypertension Hypertension type: unspecified Qualified Code(s): I10 - Essential (primary) hypertension
[2019-09-08] MEDS: SODIUM CHLORIDE 1 GM TABLET PO SCH ×2 (13:22→20:50)
--- NOTE | 2019-09-08 16:42 | Hospitalist Progress Note ---
Date of Service September 08, 2019 Assessment & Plan (1) Weakness: likely 2/2 hyponatremia-resolved (2) Hyponatremia: Acute hyponatremia 2/2 SIADH vs reset osmostat. Improved with fluid restriction and salt tabs per nephrology. Trend BMP. (3) Hypertension: Amlodipine added in ER. Cont Toprol XL (although not given to her for HTN) (4) Hypercholesterolemia: -Continue home atorvastatin (5) Asthma: Recent med changes from pulmonology to hold Symbicort and start Pulmicort, however pt has not started this change yet secondary to not receiving nebulizer -Continue Symbicort for now -Albuterol prn (6) SVT (supraventricular tachycardia): No events on telemetry overnight. Cont Toprol XL 25 mg PO daily. (7) DVT prophylaxis: Lovenox Full Dispo-likely to home at ri. Violeta Blanton DO [facility] Hospitalist Subjective 79 yo F feeling better today since admission. Na 126 from 121. Denies nausea or vomiting. Tolerating PO, dizziness resolved. Pt has a h/o supraventricular arrhythmia recently seen on an outpatient event monitor. She saw Dr. Flaherty for followup in Jul 2019 who cut her Toprol in half and discussed ways to avoid orthostatic hypotension. She appears to have poor insight into her recent medical issues. She is asking for a sleep aid and we discussed her trial of melatonin. She states she has been using 5mg then waking up and taking an additional pill to help her sleep the rest of the night. It is not clear this is truly helpful. She sees Dr. Hernández for symptomatic PVCs over the past few years. She has seen Dr. Luis regarding her chronic hyponatremia, with the last outpatient visit being 2016. Review of Systems Review of Systems: All systems reviewed & are unremarkable except as noted in HPI & below Physical Exam Physical Exam: CONSTITUTIONAL: WNWD, vitals as above, generally well- appearing EYES: normal conjunctivae, no scleral icterus ENT: MMM RESPIRATORY: clear to auscultation bilaterally, no crackles, rales or wheezes, normal respiratory effort CARDIOVASCULAR: regular rate and rhythm, S1 and 2 heard without murmurs, gallops or rubs, no JVD, no peripheral edema, no carotid bruits GASTROINTESTINAL: normal bowel sounds, soft, nontender, nondistended MUSCULOSKELETAL: strength 5/5 throughout, head is normocephalic and atraumatic, ambulatory SKIN: warm and dry NEUROLOGIC: CN 2-12 grossly intact, no sensory deficit, normal cognition, normal speech, no gross focal deficits. PSYCHIATRIC: alert cooperative and oriented to person, place and time. Results & Data Vital Signs (Past 12 Hours) Vital Signs Temp Pulse Pulse Resp BP Pulse Ox 09/08/19 15:34 37.3 C 67 19 107/66 93 09/08/19 07:57 36.9 C 61 18 127/81 95 09/08/19 06:55 61 Laboratory Results Short CBC 09/07/19 09/08/19 Range/Units 19:09 05:52 WBC 4.54 L 4.43 L (4.8-10.8) K/uL Hgb 14.0 13.1 (12.0-16.0) g/dL Hct 40.2 37.8 (37-47) % Plt Count 229 231 (130-400) K/uL BMP 09/07/19 09/08/19 09/08/19 19:09 00:59 05:52 Sodium 125 L 127 L 126 L Potassium 3.8 3.8 3.9 Chloride 93 L 94 L 95 L Carbon Dioxide 22 25 26 BUN 9 13 12 Creatinine 0.83 0.66 0.62 Glucose 150 H 100 H 89 Calcium 8.6 8.3 L 8.5 09/08/19 12:49 Sodium 126 L Potassium Chloride Carbon Dioxide BUN Creatinine Glucose Calcium (1) Hypertension Hypertension type: unspecified Qualified Code(s): I10 - Essential (primary) hypertension
[2019-09-08] MEDS: ENOXAPARIN INJ 40 MG/0.4 ML SYR SQ SCH (20:49)
[2019-09-09] MEDS: AMLODIPINE BESYLATE 5 MG TAB PO SCH (07:58)
[2019-09-09] MEDS: SODIUM CHLORIDE 1 GM TABLET PO SCH (07:58)
[2019-09-09] MEDS: BUDESONIDE/FORMOTEROL FUMARATE 80/4.5 60 PUFFS/INHALER INH SCH (07:59)
[2019-09-09] MEDS: CEROVITE ADV FORMULA TAB PO SCH (07:59)
[2019-09-09] MEDS: METOPROLOL SUCC 25MG EXT REL TAB PO SCH (07:59)
[2019-09-09] MEDS ORDERED: ATORVASTATIN 10 MG TAB PO SCH (09:00)
[2019-09-09] MEDS ORDERED: ASPIRIN 81 MG ECTAB PO SCH (09:00)
[2019-09-09 09:11] LABS: BUN Creatinine Ratio 16.6 (10-20); Calcium 9.2 mg/dl (8.5-10.1); Creatinine Clr Calc Pharmacy 52.2 ml/min; Est GFR (African American) 79.5; Est GFR (Non-African American) 68.6; Potassium 4.1 mmol/L (3.5-5.1)
--- NOTE | 2019-09-09 10:20 | Nephrology Progress Note ---
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 Serum sodium was initially 121 and urine osmolality to was appropriately low at 138. Sodium improved to 126 this morning. Blood pressure initially was elevated which currently improved. She continues to feel fatigue and tired but otherwise denies any specific symptom. Acute hyponatremia with history of chronic hyponatremia could be secondary to excessive free water intake as urine osmolality seems to be appropriately low --continue fluid restriction to less than 50 oz a day, liberalize salt in diet --continue on oral salt tablet 1 g twice a day on discharge --avoid NSAIDs, avoid thiazide diuretics. --OK to DC from nephrology standpoint, when medically stable. Please schedule follow-up with Dr. Bradshaw as an outpatient in next few weeks and have repeat lab done within few days and follow up the labs to Dr. Bradshaw for review will follow while in patient (2) Weakness: (3) Hypertension: Iman Metzger was seen and examined this morning. She continues to feel poorly but denies any specific symptoms. BP well controlled. Na slowly improving , close to her baseline. Review of Systems Review of Systems: All systems reviewed & are unremarkable except as noted in HPI & below Results & Data Vital Signs (Past 12 Hours) Vital Signs Temp Pulse Pulse Pulse Resp BP Pulse Ox 09/09/19 07:30 36.7 C 68 16 141/81 H 94 09/09/19 04:00 36.5 C 63 20 133/71 94 09/08/19 23:38 63 09/08/19 23:00 36.6 C 64 20 120/72 92 PG Care Time/CCT Total # of Minutes Spent Total Time Spent with Patient: Total time spent is greater than 50% in coordination of care (as documented) at patient's floor/unit and/or counseling patient: (1) Hypertension Hypertension type: unspecified Qualified Code(s): I10 - Essential (primary) hypertension
--- NOTE | 2019-09-09 15:52 | Discharge Summary ---
Date of Service September 09, 2019 Admission HPI Per Admitting Provider Pt is 79 y/o F with PMH HTN, HLD, chronic hyponatremia (baseline 130-132), asthma, GERD, h/o hyperkalemia on ARB presented to ER with c/o weakness. Pt's daughter assists with history. Reports pt has had progressive cognitive decline over past couple of years with increase in past 6 months. She feels pt is currently at her baseline mental status today. Pt states past 3 days feeling overall "unwell". Describes general weakness and fatigue past 3 days. States today was a little dizzy. Denies NEUMANN. Pt states took BP at home and was 170s/115 today. Daughter reports pt with intermittent weakness and fatigue over past several months. Dr Flaherty - cardiology has cut back her metoprolol from 50mg to 25mg daily to see if that would help with her symptoms. Pt and daughter do not feel any significant change in symptoms with med change. Pt reports has been taking her BP's at home and reports have been running 160's/100's. Pt states she sometimes is not compliant with her medications, but thinks she takes her metoprolol regularly. She did take total of 50mg metoprolol today secondary to her elevated BP reading. Pt follows with Dr Bradshaw- Nephrology. She is to be on 50 ounce fluid restriction and >2500mg sodium intake and >60gram protein intake daily. Pt reports has not been following those recommendations. She states that she feels she has not been eating well. Her daughter reports that she typically eats one meal a day with her and always eats well at that time. Pt lives alone, and daughter lives near by and checks on her. States today had some dysuria. Denies hematuria, urinary frequency, urinary retention. Denies fever/chills, diaphoresis, N/V/D/C, syncope, vision changes, neck pain, CP, SOB, orthopnea, palpitations, cough, sore throat, choking, otalgia, rhinorrhea, abdominal pain, paresthesias, extremity edema, rashes. Admission Exam Per Admitting Provider General: no distress, WDWN Head: normocephalic, atraumatic Eyes: PERRL, EOM's intact, conjunctiva non-injected, anicteric ENT: normal inspection external ears, nose, mucous membranes moist Neck: supple, trachea midline Lungs: clear, no respiratory distress, no wheezing/rhonchi/rales CV: RRR, no murmur, no JVD, no pretibial edema Abd: normal BS, soft, non-tender Ext: no cyanosis, no calf tenderness Neuro: Alert, oriented to person, place, date, forgetful about medications and medical history, no focal deficits noted, somewhat flat affect Skin: warm, dry Principal Diagnosis weakness, acute hyponatremia 2/2 SIADH, HTN Discharge Exam CONSTITUTIONAL: WNWD, vitals as above, generally well-appearing EYES: normal conjunctivae, no scleral icterus ENT: MMM RESPIRATORY: clear to auscultation bilaterally, no crackles, rales or wheezes, normal respiratory effort CARDIOVASCULAR: regular rate and rhythm, S1 and 2 heard without murmurs, gallops or rubs, no JVD, no peripheral edema, no carotid bruits GASTROINTESTINAL: normal bowel sounds, soft, nontender, nondistended MUSCULOSKELETAL: strength 5/5 throughout, head is normocephalic and atraumatic, ambulatory SKIN: warm and dry NEUROLOGIC: CN 2-12 grossly intact, no sensory deficit, normal cognition, normal speech, no gross focal deficits. PSYCHIATRIC: alert cooperative and oriented to person, place and time. Discharge Data Allergies Allergy/AdvReac Type Severity Reaction Status Date / Time doxycycline Allergy Unknown NAUSEA AND Verified 09/07/19 14:31 VOMITING hornet venom Allergy Unknown ANAPHYLAXIS Verified 09/07/19 14:31 warfarin Allergy Unknown LIPS Verified 09/07/19 14:31 SWELLING/NUMBNESS Consultations 09/07/19 14:56 ED Decision to Admit Stat 09/07/19 18:02 Consult Case Management - Discharge Planning Routine Consult Nephrology Routine Ordered Studies 09/07/19 13:31 CT head/brain wo con Stat Hospital Course (1) Weakness: (2) Hyponatremia: (3) Hypertension: (4) Hypercholesterolemia: (5) Asthma: (6) SVT (supraventricular tachycardia): 79-year-old female with chronic hyponatremia and history of SVT with PFO presents with worsening weakness for the past 3 days and overall general feeling of malaise. Work-up revealed a sodium of 121 and IV fluids were given. Nephrology was consulted and she was placed on a fluid restriction and given salt tablets for presumed SIADH plus/minus reset osmostat. Her sodium improved as expected over the next two days. Of note she was more hypertensive in the ER with a blood pressure in the 170s over 115. She was on Toprol-XL as monotherapy and amlodipine was added with good result. She would been placed on telemetry and throughout the entire hospitalization she remained in sinus rhythm with no evidence of arrhythmias. She had been noted to recently seen doctors at [facility] in cardiology who cut back on her Toprol-XL. At time of discharge she was not feeling 100% but was feeling a resolution of her during initial generalized weakness. She reported feeling safe to go home and desire to do so. She should follow closely with Dr. Bradshaw with Nephrology within 1 to 2 weeks. She was given a lab prescription for repeat blood work within the next 3 days. Daughter was present at bedside and we briefly discussed that she was having some memory loss. This should be followed up as an outpatient with primary care. Other imaging during this hospitalization included a head CT revealing no acute intracranial abnormality and a chest x-ray revealing no active disease. An EKG revealed normal sinus rhythm. At time of discharge she was hemodynamically stable and afebrile and oxygen eating well on room air. She was mentating and ablating at baseline and was cleared by physical therapy and occupational therapy to return home safely. She was discharged in stable condition and close primary care follow-up was recommended. Total Time Total Time Spent Total Time Spent (In Minutes): 60 Total Time Includes: Examination of the Patient, Discharge Planning, Medication Reconciliation, Communication With Other Providers and Other (arrange followup) Discharge Plan Discharge Items Patient Disposition: Home - Self-Care Reason For Visit: WEAKNESS, HYPONATREMIA Discharge Diagnosis: weakness, acute hyponatremia 2/2 SIADH, HTN Condition on Discharge: Good Health Concerns: continue workup/investigation for persistent symptoms with primary care provider. Activity: Resume your previous activity Non-emergency contact: Primary Care Provider Call non-emergency contact if: you have any medication questions, your symptoms worsen, your pain is not controlled, your pain is worsening, your pain is unusual for you and your pain is concerning for you Follow-up/Referrals: Alfonso Prado MD [Primary Care Provider] - Diet: Regular Diet Comment: 50 oz fluid restriction daily Ambulatory Orders: Basic Metabolic Panel (Routine) Timeframe: 1 Day Location: Determined by Patient Ordered By: Violeta Livingstontl Attending Provider Instructions: Please take all medications as instructed on discharge list below. Please get non-fasting labwork on Saturday of this week and followup with Dr. Prado to discuss the results. 09/14/2019 12:00 PM Alfonso Prado MD General [facility] Please continue investigation of your ongoing symptoms with Dr. Prado. It was a pleasure taking care of you! Please call if you have any questions or problems. You can reach a [facility] hospitalist on duty at [facility] 24 hours a day by calling [phone]. Take care of yourself. Violeta Blanton DO [facility] Pending Studies at Discharge: No Stand-Alone Forms: My [facility], Smoking Cessation Medications and DC Order Prescriptions: New amlodipine [Norvasc] 5 mg Tablet 5 mg PO QAM Qty: 30 RF: 1 sodium chloride 1 gram Tablet 1 g PO BID Qty: 60 RF: 1 Continued atorvastatin 10 mg tablet 10 mg PO UD RF: 0 mrgostoxpjnb-sdihoupj-ydatcz 1 tab PO QAM RF: 0 budesonide-formoterol 80-4.5 mcg/actuation HFA aerosol inhaler 2 puffs inhalation BID Qty: 1 RF: 0 metoprolol succinate 50 mg tablet extended release 24 hr 25 mg PO QAM RF: 0 albuterol sulfate [Ventolin HFA] 90 mcg/actuation HFA aerosol inhaler 2 puff inhalation UD RF: 0 aspirin 81 mg Tablet,Delayed Release (Dr/Ec) 81 mg PO UD RF: 0 Discharge Orders: Discharge Order (Routine); Ordered 09/09/19 Ordered By: Violeta Blanton Admission Data Admit Date/Time: 09/07/19 15:59 Attending Provider: Violeta Blanton Admit Provider: Sharif Mendez Primary Care Provider: Alfonso Prado Other Providers: Sharif Mendez ; [place] Sargent
== END 2019-09-09 16:31 | disposition home or self-care (01) | DRG 644 ==
LOC: ED 12:05 → SUATTDRO 15:59 → 2N 15:59